=== PATIENT | male | born 2000 | race Caucasian/White ===

== ENCOUNTER 2020-08-06 03:19 | Emergency (ER) | payer OTHER, SELFPAY ==
[2020-08-06] VITALS (9 sets, daily range): BP systolic 108–126; BP diastolic 61–70; PULSE 75–92; RESP 15–20; TEMP 36.7; O2SAT 96–100
[2020-08-06] MEDS: ONDANSETRON INJ 4 MG/2 ML VIAL IV PUSH (03:54)
[2020-08-06] MEDS: SODIUM CHLORIDE 0.9% IV 1,000 ML 999 ML IV CONT (03:54)
[2020-08-06] MEDS: PROMETHAZINE HCL 25 MG/ML AMPUL 12.5 MG IV PUSH (04:07)
[2020-08-06 04:17] LABS: Basophils Percent Auto 0.3 % (0.2-1.2); Eosinophils Absolute Auto 0.1 K/mm3 (0-0.3); Eosinophils Percent Auto 0.5 % (0-4.4); Hematocrit 42.3 % (42.0-52.0); Immature Granulocyte Absolute 0.05 K/mm3 (0.00-0.031); Immature Granulocyte Percent A 0.5 % (0-0.5); Lymphocytes Absolute Auto 2.22 K/mm3 (0.9-3.2); Lymphocytes Percent Auto 22.7 % (18.3-44.2); Mean Corpuscular HGB Conc 35.5 g/dl (32-36); Mean Corpuscular Hemoglobin 30.5 pg (26-34); Mean Corpuscular Volume 86.2 fl (80-100); Mean Platelet Volume 12.1 fl (7.4-10.4); Monocytes Absolute Auto 0.4 K/mm3 (0.1-0.6); Monocytes Percent Auto 3.7 % (2.6-8.5); Neutrophils Absolute Auto 7.1 K/mm3 (1.3-6.7); Neutrophils Percent Auto 72.3 % (45.5-73.1); Platelet Count Result 219 k/mm3 (150-375); Red Blood Count 4.91 M/mm3 (4.6-6.20); Red Cell Distribution Width 11.9 % (11.5-14.5); White Blood Count 9.8 K/mm3 (4.5-10.0)
[2020-08-06 04:54] LABS: Ethanol 102 mg/dL (<10)
[2020-08-06 04:55] LABS: Anion Gap 9 mmol/L (8-16); Blood Urea Nitrogen 14 mg/dL (9-20); Calcium 7.9 mg/dL (8.4-10.2); Carbon Dioxide 25 mmol/L (22-30); Chloride 105 mmol/L (98-107); Estimated Glomerular Filt Rate > 60; Glucose 114 mg/dL (75-110); Potassium 3.6 mmol/L (3.4-5.0); Sodium 139 mmol/L (137-145)
--- NOTE | 2020-08-06 05:17 | ED.GENADULT ---
HPI - General Adult General Chief complaint: Alcohol Stated complaint: vomiting after drinking alcohol Time Seen by Provider: 08/06/20 03:30 History of Present Illness HPI narrative: Patient is a 20-year-old male who presents ER with abdominal pain and vomiting. Patient reports he drank 8 truly seltzers this evening. He then began to get an upset stomach and developing a migraine. Migraine is bitemporal and throbbing. He started vomiting and due to a fundoplication as a child he has trouble stopping his emesis when he starts to vomit. He is having a lot of abdominal discomfort related to cramping. No diarrhea. He did not take any medications at home for his symptoms. Related Data Home Medications Medication Instructions Recorded Confirmed No Home Medications 08/06/20 08/06/20 Allergies Allergy/AdvReac Type Severity Reaction Status Date / Time diphenhydramine AdvReac Other Verified 08/06/20 03:38 [From Benadryl] ketorolac [From Toradol] AdvReac Other Verified 08/06/20 03:38 Review of Systems Review of Systems: All systems reviewed & are unremarkable except as noted in HPI and below Constitutional: Constitutional: Denies chills, Denies fever(s) and Denies weakness Eyes: Eyes: Reports change in vision (Blurring) ENT: Denies nasal congestion and Denies sore throat Gastrointestinal: Gastrointestinal: Reports abdominal pain, Denies diarrhea, Reports nausea and Reports vomiting Neurologic: Reports headache(s), Denies focal weakness and Denies numbness PMFSH Past Medical History Medical History (Updated 08/06/20 @ 06:53 by Samir Gotti MD) Migraine headache Surgical History Surgical History (Updated 08/06/20 @ 05:20 by Samir Gotti MD) History of fundoplication Social History Social History (Updated 08/06/20 @ 05:20 by Samir Gotti MD) Alcohol intake: current Exam Narrative: Exam Narrative: GENERAL: Comfortable-appearing, well-nourished, and in no acute distress. HEAD: Normocephalic, atraumatic. CHEST: Clear to auscultation. No respiratory distress. HEART: Regular rate and rhythm. Normal peripheral pulses. ABDOMEN: Soft, nontender but has generalized discomfort, nondistended. EXTREMITIES: Normal range of motion. No edema. SKIN: Warm, dry, no rash. NEURO: Alert and oriented x3. PSYCH: Normal mood and affect. Course Course Emergency Course: Patient's nausea is resolved. He then had a lot of spinning dizziness that could be related to vertigo that could have also caused his nausea and vomiting. After Valium that has ceased. Discharge home. Vital Signs Vital signs: Vital Signs Temperature 98.1 F 08/06/20 03:34 Pulse Rate 92 08/06/20 03:34 Respiratory Rate 20 08/06/20 03:34 Blood Pressure 126/70 08/06/20 03:34 Pulse Oximetry 100 08/06/20 03:34 Temperature 98.1 F 08/06/20 03:34 Pulse Rate 75 08/06/20 06:08 Respiratory Rate 15 08/06/20 06:08 Blood Pressure 113/65 08/06/20 06:31 Pulse Oximetry 97 08/06/20 06:45 Medical Decision Making Vital Signs Vital Signs: Vital Signs Temperature 98.1 F 08/06/20 03:34 Pulse Rate 92 08/06/20 03:34 Respiratory Rate 20 08/06/20 03:34 Blood Pressure 126/70 08/06/20 03:34 Pulse Oximetry 100 08/06/20 03:34 Temperature 98.1 F 08/06/20 03:34 Pulse Rate 75 08/06/20 06:08 Respiratory Rate 15 08/06/20 06:08 Blood Pressure 113/65 08/06/20 06:31 Pulse Oximetry 97 08/06/20 06:45 Lab Data Result diagrams: 08/06/20 04:09 08/06/20 04:39 Labs: Lab Results 08/06/20 08/06/20 08/06/20 Range/Units 04:09 04:39 04:39 WBC 9.8 (4.5-10.0) K/mm3 RBC 4.91 (4.6-6.20) M/mm3 Hgb 15.0 (14.0-18.0) g/dL Hct 42.3 (42.0-52.0) % MCV 86.2 (80-100) fl MCH 30.5 (26-34) pg MCHC 35.5 (32-36) g/dl RDW 11.9 (11.5-14.5) % Plt Count 219 (150-375) k/mm3 MPV 12.1 H (7.4-10.4) fl Immature Gran % (Au
[2020-08-06] MEDS: diazePAM INJ (*CRX) 10 MG/2 ML SYRINGE 2.5 MG IV PUSH (06:05)
== END 2020-08-06 07:06 | disposition home or self-care (01) ==
PROVIDERS: Emergency Provider Emergency Medicine
DX: F10.129 Alcohol abuse with intoxication, unspecified (principal); R42 Dizziness and giddiness; Y90.5 Blood alcohol level of 100-119 mg/100 ml
CPT/HCPCS: 36415; 80048; 80307; 85025; 96361; 96374; 96375; 99284; J0131; J2405; J2550; J3360; J7030